=== PATIENT | female | born 1990 | race African-American/Black ===

== ENCOUNTER 2022-02-10 08:13 | Emergency (ER) | payer OTHER | END 2022-02-10 08:38 | disposition home or self-care (01) | LOC: CSHERS 08:13 | DX: R11.0 Nausea (principal); R19.7 Diarrhea, unspecified; R63.0 Anorexia; F17.210 Nicotine dependence, cigarettes, uncomplicated | CPT/HCPCS: 99283 ==

== ENCOUNTER 2022-05-10 08:32 | Emergency (ER) | payer OTHER ==
[2022-05-10 11:26] LABS: Bilirubin Neg (Negative); Blood, Urine Negative (Negative); Clarity Clear (Clear); Glucose, Urine (Dipstick) Normal (Negative); Ketone, Urine 15 mg/dL (Negative); Leukocyte Negative (Negative); Nitrite Negative (Negative); Protein, Urine (Dipstick) Negative (Neg-Trace); Specific Gravity, Urine 1.015 (1.005-1.030); Urobilinogen Normal mg/dL (Less than 2)
== END 2022-05-10 11:48 | disposition home or self-care (01) ==
LOC: CSHERS 08:32
DX: O36.8120 Decreased fetal movements, second trimester, not applicable or unspecified (principal); O99.332 Smoking (tobacco) complicating pregnancy, second trimester; F17.210 Nicotine dependence, cigarettes, uncomplicated; Z3A.18 18 weeks gestation of pregnancy
CPT/HCPCS: 76815; 81003

== ENCOUNTER 2022-07-18 16:30 | Day surgery (SDC) | payer OTHER ==
[2022-07-18 16:56] VITALS: BMI 43.7
[2022-07-18] MEDS ORDERED: hydrALAZINE 20 MG/ML VIAL SLOW IVP PRN (17:33)
== END 2022-07-18 17:35 | disposition home or self-care (01) ==
LOC: CSHLD/OP 16:30
PROVIDERS: ATTEND Obstetrics & Gynecology
DX: O36.8130 Decreased fetal movements, third trimester, not applicable or unspecified (principal); Z3A.28 28 weeks gestation of pregnancy; O16.3 Unspecified maternal hypertension, third trimester; O99.333 Smoking (tobacco) complicating pregnancy, third trimester; F17.200 Nicotine dependence, unspecified, uncomplicated; Z79.899 Other long term (current) drug therapy; Z88.0 Allergy status to penicillin; Z88.2 Allergy status to sulfonamides; Z91.018 Allergy to other foods; Z90.49 Acquired absence of other specified parts of digestive tract
CPT/HCPCS: 99281

== ENCOUNTER 2022-07-25 14:45 | Emergency (ER) | payer OTHER ==
[2022-07-25] MEDS ORDERED: Acetaminophen 500 MG TAB ONE (15:12)
[2022-07-25 15:57] LABS: SARS-CoV-2 NAA Rapid Test Not Detected (NotDetected)
[2022-07-25] MEDS ORDERED: Oseltamivir 75 MG CAP PO SCH (16:15)
== END 2022-07-25 14:50 | disposition home or self-care (01) ==
LOC: CSHERS 14:45
DX: O98.513 Other viral diseases complicating pregnancy, third trimester (principal); J10.1 Influenza due to other identified influenza virus with other respiratory manifestations; F17.210 Nicotine dependence, cigarettes, uncomplicated; Z20.822 Contact with and (suspected) exposure to COVID-19; Z3A.29 29 weeks gestation of pregnancy
CPT/HCPCS: 71045; 96360

== ENCOUNTER 2022-08-01 20:31 | Day surgery (SDC) | payer OTHER ==
[2022-08-01 20:57] VITALS: BMI 43.7
== END 2022-08-01 23:55 | disposition home or self-care (01) ==
LOC: CSHLD/OP 20:31
PROVIDERS: ATTEND Obstetrics & Gynecology
DX: O36.8130 Decreased fetal movements, third trimester, not applicable or unspecified (principal); O13.3 Gestational [pregnancy-induced] hypertension without significant proteinuria, third trimester; Z88.0 Allergy status to penicillin; Z88.2 Allergy status to sulfonamides; Z87.891 Personal history of nicotine dependence; Z3A.30 30 weeks gestation of pregnancy
CPT/HCPCS: 76819; 99282

== ENCOUNTER 2022-09-01 03:14 | Day surgery (SDC) | payer OTHER ==
[2022-09-01 03:33] VITALS: BMI 45.4
== END 2022-09-01 06:00 | disposition home or self-care (01) ==
LOC: CSHLD/OP 03:14
PROVIDERS: ATTEND Obstetrics & Gynecology
DX: O36.8130 Decreased fetal movements, third trimester, not applicable or unspecified (principal); O13.3 Gestational [pregnancy-induced] hypertension without significant proteinuria, third trimester; Z87.891 Personal history of nicotine dependence; Z88.2 Allergy status to sulfonamides; Z79.899 Other long term (current) drug therapy; Z3A.34 34 weeks gestation of pregnancy
CPT/HCPCS: 76819; 99282

== ENCOUNTER 2022-09-15 07:16 | Day surgery (SDC) | payer OTHER ==
[2022-09-15 07:54] VITALS: BMI 61.2
[2022-09-15 08:27] LABS: Fetal Membranes Rupture No Membranes Rupture (No Rupture)
[2022-09-15] MEDS ORDERED: hydrALAZINE 20 MG/ML VIAL SLOW IVP PRN (09:03)
== END 2022-09-15 09:15 | disposition home or self-care (01) ==
LOC: CSHLD/OP 07:16
PROVIDERS: ATTEND Obstetrics & Gynecology
DX: O26.43 Herpes gestationis, third trimester (principal); O10.013 Pre-existing essential hypertension complicating pregnancy, third trimester; Z88.0 Allergy status to penicillin; Z88.2 Allergy status to sulfonamides; Z91.018 Allergy to other foods; Z3A.36 36 weeks gestation of pregnancy
CPT/HCPCS: 84112; 99283

== ENCOUNTER 2022-09-21 08:10 | Day surgery (SDC) | payer OTHER ==
[2022-09-21 08:33] VITALS: BMI 47.4
== END 2022-09-21 12:15 | disposition home or self-care (01) ==
LOC: CSHLD/OP 08:10
PROVIDERS: ATTEND Obstetrics & Gynecology
DX: O36.8130 Decreased fetal movements, third trimester, not applicable or unspecified (principal); O13.3 Gestational [pregnancy-induced] hypertension without significant proteinuria, third trimester; Z79.899 Other long term (current) drug therapy; Z3A.37 37 weeks gestation of pregnancy
CPT/HCPCS: 76819

== ENCOUNTER 2022-09-26 18:00 | Inpatient (IN) | payer OTHER ==
[2022-09-26 18:59] VITALS: BMI 47.2
[2022-09-26] MEDS ORDERED: Promethazine HCl 25 MG/ML VIAL IM PRN (20:55)
[2022-09-26] MEDS ORDERED: Diphenoxylate HCl/Atropine Tablet PO PRN ×2 (20:55)
[2022-09-26] MEDS ORDERED: HYDROcodone/Acetaminophen 5/325 mg Tablet PO PRN ×2 (20:55)
[2022-09-26] MEDS ORDERED: Carboprost 250 MCG/ML AMP IM PRN (20:55)
[2022-09-26] MEDS ORDERED: Acetaminophen 500 MG TAB PO PRN (20:55)
[2022-09-26] MEDS ORDERED: Ibuprofen 800 MG TAB PO PRN (20:55)
[2022-09-26] MEDS ORDERED: hydrALAZINE 20 MG/ML VIAL SLOW IVP PRN (20:55)
[2022-09-26] MEDS ORDERED: Lidocaine 1% (PF) 30 ML VIAL SC PRN (20:55)
[2022-09-26] MEDS ORDERED: Ondansetron PF 4 MG/2 ML Vial IVP PRN (20:55)
[2022-09-26] MEDS ORDERED: Misoprostol 200 MCG TAB PR PRN (20:55)
[2022-09-26] MEDS ORDERED: Tranexamic Acid 1,000 MG in Sodium Chloride 0.9% 250 ML 250 ML IVPB PRN (20:55)
[2022-09-26] MEDS ORDERED: Lactated Ringer's 1,000 ML IV SCH (21:00)
[2022-09-26] MEDS ORDERED: NS w/ Oxytocin 30 units 500 ML IV SCH ×2 (21:00)
[2022-09-26 21:15] LABS: Hemoglobin 10.5 g/dL (12.0-15.5); Mean Corpuscular HGB CONC 31.7 g/dL (32.0-36.0); Mean Corpuscular Hemoglobin 26.4 pg (27.0-33.0); Mean Corpuscular Volume 83.4 fl (81.6-98.3); Mean Platelet Volume 11.2 fl (7.4-10.4); Platelet Count 217 10x3/uL (150-450); RBC Distribution Width 14.9 % (11.5-14.5); Red Blood Cell (RBC) Count 3.97 10x6/uL (3.90-5.03); White Blood Cell (WBC) Count 9.6 10x3/uL (3.5-10.5)
[2022-09-26] MEDS: Misoprostol 100 MCG TAB VAG SCH (22:18)
[2022-09-26] MEDS: Vancomycin HCl 1 GM in Sodium Chloride 0.9% 250 ML 250 ML IVPB SCH (22:18)
[2022-09-26 22:25] LABS: HBSAg Index 0.14 S/CO (0-0.99); Hep B Surf Ag Non-Reactive S/CO (NonReactive)
[2022-09-26 22:27] LABS: Syphilis Antibody Nonreactive (Nonreactive); Syphilis Antibody Index 0.09 S/CO (<1.00 Non-Reactive)
[2022-09-26 22:54] LABS: SARS-CoV-2 NAA Rapid Test Not Detected (NotDetected)
[2022-09-27] MEDS: Misoprostol 100 MCG TAB VAG SCH ×2 (02:08→08:19)
[2022-09-27] MEDS ORDERED: diphenhydrAMINE 50 MG/ML VIAL ONE (02:16)
[2022-09-27] MEDS: Butorphanol Tartrate 1 MG/ML VIAL SLOW IVP PRN ×3 (03:11→08:14)
[2022-09-27] MEDS ORDERED: Fentanyl 2 mcg/Bup 0.1% Cadd 100 ML ONE ×2 (09:32→17:36)
[2022-09-27] MEDS ORDERED: Ondansetron PF 4 MG/2 ML Vial IVP PRN (10:35)
[2022-09-27] MEDS ORDERED: Acetaminophen 325 MG TAB PO PRN (10:35)
[2022-09-27] MEDS ORDERED: Naloxone HCl 0.4 mg/ml Vial IVP PRN ×2 (10:35)
[2022-09-27] MEDS ORDERED: Promethazine HCl 25 MG/ML VIAL IM PRN (10:35)
[2022-09-27] MEDS ORDERED: ePHEDrine Sulfate 50 MG/10 ML VIAL SLOW IVP PRN (10:35)
[2022-09-27] MEDS ORDERED: Lactated Ringer's 500 ML IV PRN (10:35)
[2022-09-27] MEDS ORDERED: Moisturizing Cream (Eucerin) 113 GM JAR TOP PRN (10:35)
[2022-09-27] MEDS ORDERED: diphenhydrAMINE 50 MG/ML VIAL IVP PRN (10:35)
[2022-09-27] MEDS ORDERED: Communication Order-Pharmacy FS SCH (10:45)
[2022-09-27] MEDS: Vancomycin HCl 1 GM in Sodium Chloride 0.9% 250 ML 250 ML IVPB SCH ×2 (10:51→23:08)
[2022-09-27] MEDS: Fentanyl 2 mcg/Bupivacaine 0.1% Cassette 100 ML EPIDURAL SCH (17:29)
[2022-09-28] MEDS ORDERED: Fentanyl 2 mcg/Bup 0.1% Cadd 100 ML ONE ×2 (08:11→14:42)
[2022-09-28] MEDS: Fentanyl 2 mcg/Bupivacaine 0.1% Cassette 100 ML EPIDURAL SCH (08:11)
[2022-09-28] MEDS: Vancomycin HCl 1 GM in Sodium Chloride 0.9% 250 ML 250 ML IVPB SCH (10:24)
[2022-09-28] MEDS ORDERED: Lidocaine 2% MPF 10 ML AMP (For Epidural Use) ONE ×2 (14:00→21:19)
[2022-09-28] MEDS ORDERED: Bupivacaine HCl 0.5%/Epinephrine 1:200,000/PF 30 ml Vial ONE (14:00)
[2022-09-28] MEDS ORDERED: Bupivacaine 0.25% HCL 30 ML VIAL ONE (14:00)
[2022-09-28] MEDS ORDERED: Clindamycin/D5W 900 mg/50 ml Premix Bag ONE (20:54)
[2022-09-28] MEDS ORDERED: Famotidine/PF 20 mg/2ml Vial SLOW IVP PRN (20:59)
[2022-09-28] MEDS ORDERED: Bicitra 30 ML UDCUP PO PRN (20:59)
[2022-09-28] MEDS ORDERED: Carboprost 250 MCG/ML AMP ONE (21:10)
[2022-09-28] MEDS ORDERED: Misoprostol 200 MCG TAB ONE (21:11)
[2022-09-28] MEDS ORDERED: Dexamethasone 4 mg/ml Vial ONE (21:14)
[2022-09-28] MEDS ORDERED: Tranexamic Acid 1,000 MG/10 ML VIAL ONE (21:14)
[2022-09-28] MEDS ORDERED: Ondansetron PF 4 MG/2 ML Vial ONE (21:14)
[2022-09-28] MEDS ORDERED: Oxytocin 10 UNITS/ML VIAL ONE ×2 (21:15→22:23)
[2022-09-28] MEDS ORDERED: Fentanyl 100 MCG/2 ML VIAL ONE ×2 (21:17→21:56)
[2022-09-28] MEDS ORDERED: Morphine PF 10 MG/10 ML VIAL ONE (21:17)
[2022-09-28] MEDS ORDERED: PROPOFOL 20 ML ONE (21:57)
[2022-09-28] MEDS ORDERED: Ketamine 50 MG/ML (10ML VIAL) ONE (21:57)
[2022-09-28 22:04] LABS: pH (Cord, venous) 7.357 (7.250-7.350)
[2022-09-28] MEDS ORDERED: Meperidine HCl/PF 25 MG/ML VIAL SLOW IVP PRN (22:49)
[2022-09-28] MEDS ORDERED: Fentanyl 100 MCG/2 ML VIAL SLOW IVP PRN (22:49)
[2022-09-28] MEDS ORDERED: Ondansetron HCl/PF 4 MG/2 ML Vial IVP PRN (22:49)
[2022-09-28] MEDS ORDERED: HYDROmorphone 2 MG/ML VIAL SLOW IVP PRN (22:49)
[2022-09-28] MEDS ORDERED: Ketorolac Tromethamine 30 MG/ML VIAL IVP PRN (22:49)
[2022-09-28] MEDS ORDERED: Naloxone HCl 0.4 mg/ml Vial IVP PRN ×2 (22:49)
[2022-09-28] MEDS ORDERED: Promethazine HCl 25 MG/ML VIAL IM PRN ×2 (22:49→23:13)
[2022-09-28] MEDS ORDERED: Promethazine HCl 25 MG SUPP PR PRN (22:49)
[2022-09-28] MEDS ORDERED: diphenhydrAMINE 50 MG/ML VIAL IVP PRN ×2 (22:49→23:13)
[2022-09-28] MEDS ORDERED: Moisturizing Cream (Eucerin) 113 GM JAR TOP PRN (22:49)
[2022-09-28] MEDS ORDERED: Naloxone HCl 0.4 mg/ml Vial IV PRN ×2 (22:49→23:13)
[2022-09-28] MEDS ORDERED: Ondansetron PF 4 MG/2 ML Vial IVP PRN ×2 (22:49→23:13)
[2022-09-28] MEDS ORDERED: Ketorolac Tromethamine 30 MG/ML VIAL IVP SCH (23:00)
[2022-09-28] MEDS ORDERED: Communication Order-Pharmacy FS SCH ×2 (23:00→23:15)
[2022-09-28] MEDS ORDERED: diphenhydrAMINE 25 MG CAP PO PRN (23:13)
[2022-09-28] MEDS ORDERED: diphenhydrAMINE 50 MG/ML VIAL IM PRN (23:13)
[2022-09-28] MEDS ORDERED: Zolpidem Tartrate 5 MG TAB PO PRN (23:13)
[2022-09-28] MEDS ORDERED: HYDROmorphone 10 mg/100 ml CADD IVPB PRN (23:13)
[2022-09-28] MEDS ORDERED: HYDROmorphone/PF 10 MG in Sodium Chloride 0.9% 49 ML IVPB PRN (23:30)
[2022-09-29] MEDS ORDERED: Zolpidem Tartrate 5 MG TAB PO PRN (02:01)
[2022-09-29] MEDS ORDERED: Boostrix 0.5 ML (Tdap) VIAL (>/=7 yrs of age) IM ONE (02:01)
[2022-09-29] MEDS ORDERED: Ondansetron PF 4 MG/2 ML Vial IVP PRN (02:01)
[2022-09-29] MEDS ORDERED: diphenhydrAMINE 25 MG CAP PO PRN (02:01)
[2022-09-29] MEDS ORDERED: Milk Of Magnesia 30 ML UDCUP PO PRN (02:01)
[2022-09-29] MEDS ORDERED: Measles/Mumps/Rubella 10 MCG/0.5 ML VIAL SC ONE (02:01)
[2022-09-29] MEDS ORDERED: NS w/ Oxytocin 30 units 500 ML IV SCH (02:01)
[2022-09-29] MEDS ORDERED: Misoprostol 200 MCG TAB VAG PRN (02:01)
[2022-09-29] MEDS ORDERED: Preparation H Ointment 28 GM TUBE PR PRN (02:01)
[2022-09-29] MEDS ORDERED: Benzocaine-Menthol 82.5 ML CAN TOP PRN (02:01)
[2022-09-29] MEDS ORDERED: hydrALAZINE 20 MG/ML VIAL SLOW IVP PRN (02:01)
[2022-09-29] MEDS ORDERED: Lanolin Ointment 7 GM TUBE TOP PRN (02:01)
[2022-09-29] MEDS ORDERED: Promethazine HCl 25 MG/ML VIAL IM PRN (02:01)
[2022-09-29] MEDS ORDERED: Ferrous Sulfate 325 MG TAB PO SCH (02:15)
[2022-09-29] MEDS ORDERED: Docusate 100 MG CAP PO SCH (02:15)
[2022-09-29] MEDS ORDERED: Prenatal Vitamin 1 TAB PO SCH (02:15)
[2022-09-29] MEDS: Misoprostol 100 MCG TAB VAG SCH ×2 (03:50→06:26)
[2022-09-29] MEDS: Vancomycin HCl 1 GM in Sodium Chloride 0.9% 250 ML 250 ML IVPB SCH (03:50)
[2022-09-29 04:27] LABS: Hemoglobin 10.1 g/dL (12.0-15.5); Mean Corpuscular HGB CONC 32.1 g/dL (32.0-36.0); Mean Corpuscular Hemoglobin 26.7 pg (27.0-33.0); Mean Corpuscular Volume 83.3 fl (81.6-98.3); Mean Platelet Volume 11.4 fl (7.4-10.4); Platelet Count 219 10x3/uL (150-450); Red Blood Cell (RBC) Count 3.78 10x6/uL (3.90-5.03); White Blood Cell (WBC) Count 21.5 10x3/uL (3.5-10.5)
[2022-09-29] MEDS: Docusate 100 MG CAP PO SCH ×2 (09:00→21:23)
[2022-09-29] MEDS: Ferrous Sulfate 325 MG TAB PO SCH ×2 (09:01→17:05)
[2022-09-29] MEDS: HYDROcodone/Acetaminophen 5/325 mg Tablet PO PRN ×3 (11:42→21:23)
[2022-09-29] MEDS ORDERED: Ibuprofen 800 MG TAB PO SCH (23:45)
[2022-09-30] MEDS ORDERED: Communication Order-Pharmacy FS ONE (00:30)
[2022-09-30] MEDS: Lactated Ringer's 1,000 ML IV SCH ×7 (00:57→22:15)
[2022-09-30 01:35] LABS: ALT (SGPT) 12 U/L (8-55); AST (SGOT) 23 U/L (5-34); Albumin 2.8 g/dL (3.5-5.0); Alkaline Phosphatase 108 U/L (40-110); Anion Gap 13 mmol/L (10-20); BUN (Urea Nitrogen) 4 mg/dL (7.0-18.7); Bilirubin, Total 0.3 mg/dL (0.2-1.2); Calc. Creatinine Clearance 314 mL/min (70-130); Calcium 9.2 mg/dL (7.8-10.44); Carbon Dioxide 18 mmol/L (22-29); Chloride 108 mmol/L (98-107); Estimated GFR 124; Glucose 153 mg/dL (70-105); Potassium 3.7 mmol/L (3.5-5.1); Protein, Total 5.8 g/dL (6.0-8.3); Sodium 135 mmol/L (136-145)
[2022-09-30 01:38] LABS: Troponin I 0.016 ng/mL (< 0.028)
[2022-09-30] MEDS: HYDROcodone/Acetaminophen 5/325 mg Tablet PO PRN ×5 (01:38→22:13)
[2022-09-30] MEDS: metroNIDAZOLE 500 MG in Premix Bag 1 BAG IVPB SCH ×3 (01:40→17:35)
[2022-09-30] MEDS ORDERED: VANCOMYCIN 2 GRAM/400 ML BAG 2 GM in Premix Bag 1 BAG IVPB SCH ×2 (02:00→03:00)
[2022-09-30 02:02] LABS: #Eosinphils 0.1 10x3/uL (0.0-0.5); #Neutrophils 13.4 10x3/uL (1.5-8.4); %Basophils 0.1 % (0.0-2.0); %Eosinophils 0.4 % (0.0-6.0); %Lymphocytes 6.9 % (18.0-47.0); %Monocytes 6.3 % (0.0-10.0); %Neutrophils 85.8 % (40.0-75.0); Hemoglobin 9.6 g/dL (12.0-15.5); Mean Corpuscular Hemoglobin 26.9 pg (27.0-33.0); Mean Platelet Volume 10.9 fl (7.4-10.4); Platelet Count 180 10x3/uL (150-450); RBC Distribution Width 15.4 % (11.5-14.5); Red Blood Cell (RBC) Count 3.57 10x6/uL (3.90-5.03); White Blood Cell (WBC) Count 15.6 10x3/uL (3.5-10.5)
[2022-09-30] MEDS: Cefepime 2 GM in Sodium Chloride 0.9% 100 ML IVPB SCH ×4 (02:06→18:46)
[2022-09-30] MEDS ORDERED: Potassium Chloride 20 MEQ TAB PO SCH (03:15)
[2022-09-30 05:23] LABS: Magnesium 1.4 mg/dL (1.6-2.6)
[2022-09-30 05:30] LABS: Troponin I Less than 0.010 ng/mL (< 0.028)
[2022-09-30] MEDS ORDERED: Ibuprofen 800 MG TAB PO SCH (06:00)
[2022-09-30] MEDS ORDERED: Magnesium 2 GM/50 ML(in water) 2 GM in Premix Bag 1 BAG IVPB SCH (08:00)
[2022-09-30] MEDS ORDERED: Sodium Chloride 0.9% 100 ML ONE (09:20)
[2022-09-30] MEDS: Ferrous Sulfate 325 MG TAB PO SCH ×2 (09:47→17:34)
[2022-09-30] MEDS: Docusate 100 MG CAP PO SCH ×2 (09:47→22:13)
[2022-09-30] MEDS: Magnesium Oxide 400 MG TAB PO SCH (09:48)
[2022-09-30] MEDS: Prenatal Vitamin 1 TAB PO SCH (10:05)
[2022-09-30] MEDS ORDERED: Iopamidol 370 76% 100 ML VIAL ONE (11:36)
[2022-09-30 14:38] LABS: Bilirubin Neg (Negative); Blood, Urine 250 (Negative); Clarity Cloudy (Clear); Glucose, Urine (Dipstick) Normal (Negative); Ketone, Urine 50 mg/dL (Negative); Leukocyte 100 (Negative); Nitrite Negative (Negative); Protein, Urine (Dipstick) 100 mg/dl (Neg-Trace); Specific Gravity, Urine 1.005 (1.005-1.030); Urobilinogen Normal mg/dL (Less than 2)
[2022-09-30] MEDS: Ibuprofen 400 MG TAB PO SCH ×2 (14:41→22:14)
[2022-09-30] MEDS: VANCOMYCIN 1.75 GM/350 ML BAG 1.75 GM in Premix Bag 1 BAG IVPB SCH (14:51)
[2022-09-30 14:55] LABS: RBC/HPF Greater than 50 HPF (0-3)
[2022-09-30 14:56] LABS: Bacteria/HPF 1+ HPF (None Seen); Mucous/LPF 1+ LPF (<2+); Squamous Epithelial 0-3 HPF (0-3)
[2022-09-30] MEDS ORDERED: VANCOMYCIN 1.75 GM/350 ML BAG 1.75 GM in Premix Bag 1 BAG IVPB SCH (15:00)
[2022-09-30] MEDS ORDERED: Calcium Carbonate 500 MG ChewTAB PO PRN (15:25)
[2022-09-30] MEDS: Simethicone Chewable 80 MG TAB PO PRN ×2 (15:34→22:14)
[2022-10-01] MEDS: metroNIDAZOLE 500 MG in Premix Bag 1 BAG IVPB SCH ×3 (01:31→18:19)
[2022-10-01] MEDS: HYDROcodone/Acetaminophen 5/325 mg Tablet PO PRN ×5 (01:42→20:04)
[2022-10-01] MEDS: Cefepime 2 GM in Sodium Chloride 0.9% 100 ML IVPB SCH ×3 (03:07→20:57)
[2022-10-01] MEDS: VANCOMYCIN 1.75 GM/350 ML BAG 1.75 GM in Premix Bag 1 BAG IVPB SCH ×2 (04:11→15:52)
[2022-10-01] MEDS: Lactated Ringer's 1,000 ML IV SCH (04:12)
[2022-10-01 04:34] LABS: #Eosinphils 0.2 10x3/uL (0.0-0.5); #Monocytes 0.9 10x3/uL (0.0-1.1); %Basophils 0.1 % (0.0-2.0); %Eosinophils 1.9 % (0.0-6.0); %Lymphocytes 7.8 % (18.0-47.0); %Monocytes 9.3 % (0.0-10.0); %Neutrophils 80.2 % (40.0-75.0); Hemoglobin 7.6 g/dL (12.0-15.5); Mean Corpuscular HGB CONC 31.9 g/dL (32.0-36.0); Mean Corpuscular Hemoglobin 26.7 pg (27.0-33.0); Mean Corpuscular Volume 83.5 fl (81.6-98.3); Mean Platelet Volume 10.6 fl (7.4-10.4); Platelet Count 188 10x3/uL (150-450); RBC Distribution Width 15.1 % (11.5-14.5); Red Blood Cell (RBC) Count 2.85 10x6/uL (3.90-5.03)
[2022-10-01 04:49] LABS: Anion Gap 12 mmol/L (10-20); BUN (Urea Nitrogen) 4 mg/dL (7.0-18.7); Calc. Creatinine Clearance 385 mL/min (70-130); Calcium 8.5 mg/dL (7.8-10.44); Carbon Dioxide 18 mmol/L (22-29); Chloride 109 mmol/L (98-107); Estimated GFR 130; Glucose 90 mg/dL (70-105); Magnesium 1.5 mg/dL (1.6-2.6); Potassium 3.4 mmol/L (3.5-5.1); Sodium 136 mmol/L (136-145)
[2022-10-01 04:53] LABS: Troponin I Less than 0.010 ng/mL (< 0.028)
[2022-10-01] MEDS: Ibuprofen 400 MG TAB PO SCH ×3 (05:46→20:03)
[2022-10-01] MEDS: Magnesium Oxide 400 MG TAB PO SCH (09:03)
[2022-10-01] MEDS: Ferrous Sulfate 325 MG TAB PO SCH ×2 (09:04→18:15)
[2022-10-01] MEDS: Docusate 100 MG CAP PO SCH ×3 (09:04→20:06)
[2022-10-01] MEDS: Prenatal Vitamin 1 TAB PO SCH (09:32)
[2022-10-01] MEDS: Simethicone Chewable 80 MG TAB PO PRN ×2 (14:07→20:06)
[2022-10-01] MEDS: Bisacodyl 10 MG SUPP PR PRN (14:45)
[2022-10-01 15:14] LABS: Vancomycin, Trough 7.4 ug/mL
[2022-10-01] MEDS: VANCOMYCIN 2 GRAM/400 ML BAG 2 GM in Premix Bag 1 BAG IVPB SCH (16:00)
[2022-10-02] MEDS: HYDROcodone/Acetaminophen 5/325 mg Tablet PO PRN ×4 (00:35→20:17)
[2022-10-02] MEDS: metroNIDAZOLE 500 MG in Premix Bag 1 BAG IVPB SCH ×3 (00:36→17:12)
[2022-10-02] MEDS: Bisacodyl 10 MG SUPP PR PRN (00:45)
[2022-10-02] MEDS: VANCOMYCIN 2 GRAM/400 ML BAG 2 GM in Premix Bag 1 BAG IVPB SCH (03:08)
[2022-10-02] MEDS: Cefepime 2 GM in Sodium Chloride 0.9% 100 ML IVPB SCH (06:29)
[2022-10-02] MEDS: Ibuprofen 400 MG TAB PO SCH ×3 (06:33→17:37)
[2022-10-02] MEDS ORDERED: Polyethylene Glycol 3350 17 GM Packet PO SCH (08:45)
[2022-10-02] MEDS ORDERED: cefTRIAXone\\ROCEPHIN 1 GM in Sodium Chloride 0.9% 100 ML IVPB SCH (09:00)
[2022-10-02] MEDS: Ferrous Sulfate 325 MG TAB PO SCH ×2 (09:14→17:12)
[2022-10-02] MEDS: Prenatal Vitamin 1 TAB PO SCH (09:15)
[2022-10-02 09:16] LABS: #Eosinphils 0.2 10x3/uL (0.0-0.5); #Monocytes 0.9 10x3/uL (0.0-1.1); #Neutrophils 8.2 10x3/uL (1.5-8.4); %Basophils 0.1 % (0.0-2.0); %Eosinophils 1.9 % (0.0-6.0); %Lymphocytes 6.1 % (18.0-47.0); %Monocytes 8.8 % (0.0-10.0); Hemoglobin 7.9 g/dL (12.0-15.5); Mean Corpuscular HGB CONC 32.1 g/dL (32.0-36.0); Mean Corpuscular Hemoglobin 26.8 pg (27.0-33.0); Mean Corpuscular Volume 83.4 fl (81.6-98.3); Mean Platelet Volume 10.2 fl (7.4-10.4); Platelet Count 215 10x3/uL (150-450); RBC Distribution Width 15.1 % (11.5-14.5); Red Blood Cell (RBC) Count 2.95 10x6/uL (3.90-5.03)
[2022-10-02] MEDS: Magnesium Oxide 400 MG TAB PO SCH (09:17)
[2022-10-02] MEDS: Docusate 100 MG CAP PO SCH ×2 (09:24→20:12)
[2022-10-02 09:31] LABS: Anion Gap 14 mmol/L (10-20); BUN (Urea Nitrogen) Less than 4 mg/dL (7.0-18.7); Calc. Creatinine Clearance 370 mL/min (70-130); Calcium 8.5 mg/dL (7.8-10.44); Carbon Dioxide 18 mmol/L (22-29); Chloride 110 mmol/L (98-107); Estimated GFR 129; Glucose 102 mg/dL (70-105); Potassium 3.5 mmol/L (3.5-5.1); Sodium 138 mmol/L (136-145)
[2022-10-02] MEDS ORDERED: VANCOMYCIN 2 GRAM/400 ML BAG 2 GM in Premix Bag 1 BAG IVPB SCH (11:00)
[2022-10-02] MEDS: Lactated Ringer's 1,000 ML IV SCH ×3 (20:12→20:26)
[2022-10-02 21:46] VITALS: BP 154/64; TEMP 98.3
== END 2022-10-02 22:30 | disposition home or self-care (01) | DRG 786 ==
LOC: CSHLD 18:31 → CSHPP 09-29 02:40 → CSHTELE 09-30 01:31
PROVIDERS: ADMIT Obstetrics & Gynecology; ATTEND Obstetrics & Gynecology
PROC: 3E0234Z Introduction of Serum, Toxoid and Vaccine into Muscle, Percutaneous Approach (ICD-10-PCS; 2022-09-26)
PROC: 4A133R1 Monitoring of Arterial Saturation, Peripheral, Percutaneous Approach (ICD-10-PCS; 2022-09-26)
PROC: 10D00Z1 Extraction of Products of Conception, Low, Open Approach (ICD-10-PCS; principal; 2022-09-28)
DX: O13.4 Gestational [pregnancy-induced] hypertension without significant proteinuria, complicating childbirth (principal); A41.9 Sepsis, unspecified organism; O98.52 Other viral diseases complicating childbirth; O98.83 Other maternal infectious and parasitic diseases complicating the puerperium; Z37.0 Single live birth; Z3A.38 38 weeks gestation of pregnancy; Z20.822 Contact with and (suspected) exposure to COVID-19; B00.9 Herpesviral infection, unspecified; O32.4XX0 Maternal care for high head at term, not applicable or unspecified; O99.824 Streptococcus B carrier state complicating childbirth; O99.214 Obesity complicating childbirth; E83.42 Hypomagnesemia; O99.285 Endocrine, nutritional and metabolic diseases complicating the puerperium; O99.63 Diseases of the digestive system complicating the puerperium; K59.00 Constipation, unspecified; O86.20 Urinary tract infection following delivery, unspecified; Z88.0 Allergy status to penicillin; Z88.2 Allergy status to sulfonamides; Z91.018 Allergy to other foods; Z79.899 Other long term (current) drug therapy; Z81.1 Family history of alcohol abuse and dependence; Z83.3 Family history of diabetes mellitus; Z82.0 Family history of epilepsy and other diseases of the nervous system; Z90.49 Acquired absence of other specified parts of digestive tract; Z87.891 Personal history of nicotine dependence
CPT/HCPCS: 36415; 51702; 71045; 71275; 80048; 80053; 80202; 81001; 82805; 83605; 83735; 84484; 85025; 85027; 86780; 86850; 86900; 86901; 87040; 87086; 87340; 88305; 88307; 93005; 93010; 93306; J0595; J0692; J0696; J1100; J1170; J1650; J1885; J2274; J2405; J2590; J2704; J3010; J3370; J3475; J3490; J7050; J7120; Q9967; S0020; U0002